=== PATIENT | female | born 1990 | race Caucasian/White ===

== ENCOUNTER 2018-12-05 06:36 | Day surgery (SDC) | payer BC, OTHER ==
[2018-12-02 12:01] LABS: HEMATOCRIT 37.8 % (36.0-47.0); HEMOGLOBIN 12.3 g/dL (12.0-15.5); MEAN CORPUSCULAR HEMOGLOBIN 27.3 pg (27.0-33.4); MEAN CORPUSCULAR HGB CONC 32.5 g/dL (32.0-36.0); MEAN CORPUSCULAR VOLUME 84 fl (80-97); PLATELET COUNT 244 10^3/uL (150-450); RED CELL DISTRIBUTION WIDTH 15.9 % (11.5-14.0); WHITE BLOOD COUNT 5.7 10^3/uL (4.0-10.5)
[2018-12-02 12:14] LABS: APPEARANCE,URINE CLEAR; BILIRUBIN,URINE NEGATIVE (NEGATIVE); COLOR,URINE COLORLESS; GLUCOSE, URINE NEGATIVE (NEGATIVE); KETONES,URINE NEGATIVE (NEGATIVE); LEUKOCYTE ESTERASE,URINE NEGATIVE (NEGATIVE); NITRITE,URINE NEGATIVE (NEGATIVE); PROTEIN,URINE NEGATIVE (NEGATIVE); URINE SPECIFIC GRAVITY 1.002; UROBILINOGEN,URINE NEGATIVE mg/dL (<2.0)
[~2018-12-05 06:36] MED LIST: LACTATED RINGERS 1000 ML IV PRN; LIDOCAINE 0.5% INJ-PF (5 MG/ML) 50 ML SDV SUBCUT PRN; SCOPOLAMINE HYDROBROMIDE 1.5 MG PATCH.TD72 ONE; SCOPOLAMINE HYDROBROMIDE 1.5 MG PATCH.TD72 TD PRN
[2018-12-05] MEDS ORDERED: MIDAZOLAM 2 MG/2 ML INJ ONE (07:57)
[2018-12-05] MEDS ORDERED: ONDANSETRON HCL INJ/PF 4 MG/2 ML SDV ONE (07:57)
[2018-12-05] MEDS ORDERED: DEXAMETHASONE SOD PHOSPHATE INJ 4 MG/1 ML VIAL ONE (07:57)
[2018-12-05] MEDS ORDERED: FENTANYL CITRATE INJ/PF 100 MCG/2 ML AMPUL ONE (07:57)
[2018-12-05] MEDS ORDERED: PROPOFOL INJ 200 MG/20 ML VIAL IV ONE (07:58)
[2018-12-05] MEDS ORDERED: MORPHINE SULFATE 10 MG/ML INJ ONE (07:58)
[2018-12-05] MEDS ORDERED: LIDOCAINE 1%/EPINEPHRINE INJ 20 ML VIAL ONE (08:00)
[2018-12-05] MEDS ORDERED: CEFAZOLIN 1 GM/D5W RTU 1 GM/50 ML RTUPB IV ONE (08:11)
[2018-12-05] MEDS ORDERED: PROMETHAZINE HCL INJ 25 MG/1 ML VIAL IV PRN ×2 (08:46)
[2018-12-05] MEDS ORDERED: MORPHINE SULFATE 10 MG/ML INJ IV PRN (08:46)
[2018-12-05] MEDS ORDERED: FENTANYL CITRATE INJ/PF 100 MCG/2 ML AMPUL IV PRN ×3 (08:46)
[2018-12-05] MEDS ORDERED: DIPHENHYDRAMINE HCL 50 MG/ML VIAL IV PRN (08:46)
[2018-12-05] MEDS ORDERED: MEPERIDINE HCL/PF INJ 25 MG/1 ML DISP.SYRIN IV PRN (08:46)
[2018-12-05] MEDS ORDERED: ACETAMINOPHEN 1,000 MG/100 ML RTUPB IV ONE (09:37)
[2018-12-05] MEDS ORDERED: ONDANSETRON HCL 8 MG TABLET PO PRN (09:51)
[2018-12-05] MEDS ORDERED: OXYCODONE-ACETAMINOPHEN 5-325 MG TABLET PO PRN (09:51)
[2018-12-05] MEDS ORDERED: IBUPROFEN 800 MG TABLET PO SCH (10:00)
--- NOTE | 2018-12-05 10:00 | OPERATIVE REPORT E ---
Operative Report NAME: CHEMA ROSE : 1990 AGE: 28Y DATE OF SURGERY: 12/05/2018 ROOM: PREOPERATIVE DIAGNOSIS: Recurrent Bartholin gland cyst. POSTOPERATIVE DIAGNOSIS: Recurrent Bartholin gland cyst. OPERATION: Excision of Bartholin gland cyst and duct. SURGEON: Gurpreet MCCANN M.D. ANESTHESIA: General. ESTIMATED BLOOD LOSS: 50 mL. TISSUE REMOVED: Bartholin gland. PROCEDURE: The patient was placed in a dorsal lithotomy position, prepped and draped in the usual sterile fashion. The vaginal mucosa was grasped over the Bartholin gland cyst and between the remnants of the hymen and the outer labia minora an incision was made along an existing eschar. This was continued down until the cyst wall was encountered. Using countertraction and blunt and sharp dissection, the duct and cyst were removed. Following this, underlying tissue was closed using multiple layers of interrupted 2-0 Vicryl. The ties were applied to the vessels and free ties were applied to the larger bleeding vessels. Hemostasis was noted. The vaginal defect was then closed with a running suture of 2-0 Vicryl. The patient tolerated the procedure well and was taken to recovery in good condition. DICTATING PHYSICIAN: Gurpreet MCCANN M.D. [id number] Y#: [id number] ID: [id number] JOB#: [id number] ACCT: [id number] cc:Gurpreet MCCANN M.D. >
[2018-12-05] MEDS ORDERED: KETOROLAC TROMETHAMINE INJ/PF 30 MG/1 ML SDV ONE (10:01)
[2018-12-05] MEDS ORDERED: HYDROMORPHONE HCL INJ/PF 2 MG/ML AMPULE ONE (10:02)
[2018-12-05 12:42] VITALS: BP 104/63
== END 2018-12-05 11:35 | disposition home or self-care (01) ==
LOC: OROUT 06:36
PROVIDERS: ATTEND Obstetrics & Gynecology Gynecology
DX: N75.0 Cyst of Bartholin's gland (principal); Z87.891 Personal history of nicotine dependence
CPT/HCPCS: 36415; 85027; 81025; 81001; 88305 ×2; 00940; 56740; J2250; J0690; J1100; J3010; J3490; J1885; J2270; J1170; J2405; J2704; J0131; 88304; 940